=== PATIENT | male | born 1965 | race Caucasian/White ===

== ENCOUNTER 2016-04-03 07:54 | Inpatient (IN) | payer OTHER, MEDICARE, MEDICAID ==
[~2016-04-03] VITALS: Ht 175.3 cm; Wt 122.0 kg
[~2016-04-03 07:54] MED LIST: CLOP75TA27 PO; DIL1I IV; LISI20TA PO; METO-429 PO; PANT40SU PO; SIMV40TA2 PO; ZOLP5TAB PO
[2016-04-03] MEDS ORDERED: HYDROmorphONE 1 MG/ML SYG IV STA (08:35)
[2016-04-03] MEDS ORDERED: ONDANSETRON 4 MG INJ IV STA (08:35)
[2016-04-03] MEDS ORDERED: SOD CHLORIDE 0.9% 1,000 ML IV STA (08:35)
[2016-04-03] MEDS ORDERED: DIPHENHYDRAMINE 50 MG INJ IV ONE ×2 (09:00→14:30)
[2016-04-03 09:16] LABS: AADO2 Arterial 38.1 mmHg (7.0-24.0); Arterial Base Excess 0.9 mmol/L (-3.0-3); Arterial COHb 3.4 % (0.0-3.0); Arterial Fraction of Oxyhgb 92.7 % (93.0-99.0); Arterial HCO3 22.8 mmol/L (22.0-26.0); Arterial MetHb 0.1 % (0.0-1.5); Arterial Total Hemglobin 13.9 g/dl (12.0-18.0); MODE ROOM AIR
--- NOTE | 2016-04-03 09:37 | RADRPT ---
PROCEDURE: CT Abdomen and Pelvis without contrast. CLINICAL INDICATION: Abdominal pain TECHNIQUE: CT of the abdomen and pelvis was performed on a multi-detector scanner without IV contr ast. Coronal and sagittal images were reformatted from the axial data set. One or more of the foll owing dose reduction techniques were used: automated exposure control, adjustment of the mA and/or kV according to patient size, use of iterative reconstruction technique. CTDI = 23.46 mGy. DLP = 16 16.99 mGy-cm. COMPARISON: None. FINDINGS: CT abdomen: The lung bases are clear. The heart size is normal, without pericardial effusion. Coronary arteria l calcifications are noted. The liver is enlarged (20 cm) and fatty infiltrated, without evidence o f focal mass. Gallbladder is surgically absent. Biliary tree, pancreas, spleen, adrenal glands and kidneys are unremarkable. No urolithiasis or obstructive uropathy is identified. The stomach is gr ossly unremarkable. The aorta is of normal caliber. Aortic vascular calcifications are present. There is no retroperit valdes lymphadenopathy. The yao hepatis region is clear. CT pelvis: No bowel obstruction, free intraperitoneal air or abscess is identified. The patient is status post appendectomy. No diverticulosis, diverticulitis or colitis is identified. Urinary bladder is alfonso sly unremarkable. No pelvic mass, free fluid or lymphadenopathy is identified. The surrounding osseous structures are remarkable for degenerative spondylosis of the spine. No ost eolytic or osteoblastic lesion is detected. IMPRESSION: 1. Hepatic steatosis and hepatomegaly are noted. 2. The patient is status post cholecystectomy and appendectomy. 3. Coronary arterial and aortoiliac atherosclerotic calcifications are present. 4. No mass, lymphadenopathy, or focal acute inflammatory process is identified. RPTAT: HH .Robert Fleming MD, MD Date Time Electronically viewed and signed by .Robert Fleming MD, MD on 04/03/2016 09:37 .R/
[2016-04-03 09:43] LABS: ADD UMIC YES; URINE BILIRUBIN (Dip) NEGATIVE (NEGATIVE); URINE BLOOD (Dip) 1+ (NEGATIVE); URINE COLOR YELLOW (YELLOW); URINE GLUCOSE (Dip) NEGATIVE (NEGATIVE); URINE KETONES (Dip) 15 (NEGATIVE); URINE LEUKOCYTE ESTERASE (Dip) NEGATIVE (NEGATIVE); URINE NITRITE (Dip) NEGATIVE (NEGATIVE); URINE TOTAL PROTEIN (Dip) 1+ (NEGATIVE); URINE UROBILINOGEN (Dip) 0.2 E.U./dL (0.1-1.0)
--- NOTE | 2016-04-03 10:14 | RADRPT ---
PROCEDURE: XR Chest. CLINICAL INDICATION: Altered level of consciousness TECHNIQUE: Chest AP portable. COMPARISON: No comparison available. FINDINGS: The mediastinal structures are unremarkable. The heart is normal in size and configuration. The pu lmonary vascularity is normal. The lung andino are unremarkable. No consolidation is identified. The pleural spaces are unremarkable. The axial skeleton is unremarkable. IMPRESSION: No active intrathoracic disease. RPTAT: [facility] .Vinod Au MD, MD Date Time Electronically viewed and signed by .Vinod Au MD, MD on 04/03/2016 10:13 .B/
[2016-04-03 10:22] LABS: BACTERIA,URINE FEW; MUCUS,URINE MANY
[2016-04-03 10:32] LABS: BARBITURATES Negative (NEGATIVE)
[2016-04-03 11:00] LABS: BENZODIAZEPINES Negative (NEGATIVE); CANNABINOIDS Negative (NEGATIVE); COCAINE Positive (NEGATIVE); OPIATES Negative (NEGATIVE)
[2016-04-03 11:39] LABS: HEMOGLOBIN 14.3 g/dl (14.0-18.0); MEAN CORPUSCULAR HEMOGLOBIN 26.6 pg (29.0-33.0); MEAN CORPUSCULAR HGB CONC 33.4 g/dl (32.0-37.0); MEAN CORPUSCULAR VOLUME 79.7 fl (82.0-101.0); MEAN PLATELET VOLUME 9.2 fl (7.4-10.4); PLATELET COUNT 183 10^3/UL (140-440); RED BLOOD COUNT 5.39 10^6/ul (4.70-6.10); RED CELL DISTRIBUTION WIDTH 17.5 % (11.5-14.5); WHITE BLOOD COUNT 11.6 10^3/ul (4.8-10.8)
[2016-04-03 11:41] LABS: CONDITION 1; LH ANALYZER COMMENTS 1; SUSPECT 1; UNCORRECTED WBC 13.5 10^3/ul (4.8-10.8)
[2016-04-03 11:55] LABS: BASOPHIL # 0.1 10^3/ul (0.0-0.1); EOSINOPHILS # 0.1 10^3/ul (0.0-0.5); LYMPHOCYTES # 0.8 10^3/ul (0.8-2.9); MONOCYTE # 0.6 10^3/ul (0.3-0.9); NEUTROPHIL # 9.5 10^3/ul (1.6-7.5)
[2016-04-03 11:57] LABS: INR 0.97; PROTIME 12.9 Sec (12.2-14.2)
[2016-04-03 12:12] LABS: PARTIAL THROMBOPLASTIN TIME 31.8 Sec (25.0-35.0)
[2016-04-03 12:18] LABS: ALBUMIN 4.6 g/dl (3.3-4.9); CHLORIDE 107 mmol/L (97-110)
[2016-04-03 12:19] LABS: POTASSIUM 4.2 mmol/L (3.5-5.1); SODIUM 146 mmol/L (135-144)
[2016-04-03 12:21] LABS: BILIRUBIN,INDIRECT 0.6 mg/dl (0-1.1); BILIRUBIN,TOTAL 0.6 mg/dl (0.2-1.3); CREATININE 0.76 mg/dl (0.61-1.24)
[2016-04-03 12:22] LABS: ALANINE AMINOTRANSFERASE 29 IU/L (13-69); ALBUMIN/GLOBULIN RATIO 1.53; ALKALINE PHOSPHATASE 98 IU/L (42-121); ANION GAP 22 (8-16); ASPARTATE AMINO TRANSFERASE 44 IU/L (15-46); BLOOD UREA NITROGEN 17 mg/dl (7-20); CALCIUM 9.4 mg/dl (8.4-10.2); CARBON DIOXIDE 21 mmol/L (21-31); GLUCOSE 81 mg/dl (70-220); TOTAL PROTEIN 7.6 g/dl (6.1-8.1)
[2016-04-03 12:23] LABS: ACETAMINOPHEN < 10.0 ug/ml (10.0-30.0); ETHANOL < 10.0 mg/dl; SALICYLATE < 1.0 mg/dl (5.0-30.0)
--- NOTE | 2016-04-03 12:38 | ERD ---
ER Documentation Chief Complaint Date/Time DATE: 04/03/16 TIME: 12:29 Chief Complaint ATTEMPTED OD PLAVIX, YESTERDAY AND TRIED TO HANG HIMSELF LAST NIGHT, HPI Patient is a 50-year-old male who states that yesterday he took several pills of Plavix, metoprolol, and some aspirin in an attempt to kill himself. He said he throughout most of the pills and was not successful. After that he then tried to hang himself which was also not successful. He says the rope broke and he fell to the floor and knocked himself out. He is not sure how long he laid on the floor but when he woke up he woke up with bug bites all over himself. He then called the ambulance and they brought him here. His only complaints at this time are that he is having some side pain where he landed on the floor and that the bug bites or itching. He denies any head pain, chest pain, shortness of breath, neck pain, back pain, nausea, vomiting, loss of bowel or bladder, lacerations, bruising, abrasions, dysuria, or hematuria. He states he is still depressed and would like to . Remainder review of systems are negative. ROS All systems reviewed and are negative except as per history of present illness. Medications Home Meds Reported Medications Zolpidem Tartrate* (Ambien*) 5 Mg Tablet, 5 MG PO QHS Y for INSOMNIA, #30 TAB 02/12/16 Simvastatin* (Zocor*) 40 Mg Tablet, 40 MG PO QHS, #30 TAB 02/12/16 Pantoprazole Sodium (Protonix) 40 Mg Granpkt.dr, 40 MG PO AC BREAKFAST 02/12/16 Metoprolol Tartrate* (Lopressor*) 50 Mg Tab, 50 MG PO BID, #60 TAB 02/12/16 Lisinopril* (Prinivil*) 20 Mg Tablet, 20 MG PO DAILY, #30 TAB 02/12/16 Clopidogrel Bisulfate (Clopidogrel) 75 Mg Tablet, 75 MG PO DAILY, #30 TAB 02/12/16 Discontinued Reported Medications Hydromorphone Hcl* (Dilaudid* Inj) 1 Mg/Ml Soln, 0.5 MG IV Q4H Y for PAIN, AMP 02/12/16 Allergies Allergies: Coded Allergies: Iodine and Iodide Containing Produc (Verified Allergy, Severe, anaphylaxis , 02/12/16) acetaminophen (Verified Allergy, Severe, 02/12/16) Per pt., kidney failure morphine (Verified Allergy, Severe, hives, 02/12/16) PMhx/Soc History of Surgery: Yes (CHOLECYSTECTOMY,APPENDECTOMY) Anesthesia Reaction: No Hx Neurological Disorder: No Hx Respiratory Disorders: No Hx Cardiac Disorders: Yes (HTN) Hx Psychiatric Problems: No Hx Miscellaneous Medical Probl: No Hx Alcohol Use: Yes Hx Substance Use: Yes Hx Tobacco Use: Yes Smoking Status: Current every day smoker FmHx Family History: coronary disease, diabetes Physical Exam Vitals Vital Signs Date Time Temp Pulse Resp B/P Pulse Ox O2 Delivery O2 Flow Rate FiO2 04/03/16 14:05 98.6 74 19 135/78 100 Room Air 04/03/16 10:15 99.1 98 20 150/95 99 Room Air 2.0 04/03/16 08:00 98.0 101 20 172/96 98 Physical Exam Const: [] Well-developed well-nourished male lying on the bed tearful. Head: Atraumatic normocephalic Eyes: Normal Conjunctiva ENT: Normal External Ears, Nose and Mouth. Neck: Full range of motion..~ No meningismus. Resp: Clear to auscultation bilaterally Cardio: Regular rate and rhythm, no murmurs Abd: Soft, obese, mild tenderness to palpation in the right upper quadrant, no rebound, no guarding, no bruising, no masses, non distended. Normal bowel sounds Skin: No petechiae, patient has a scattered rash on his extremities and around his beltline. It is erythematous and papular consistent with bug bites. He states it itches. Back: No midline or flank tenderness Ext: No cyanosis, or edema Neur: Awake and alert oriented 3, GCS equals 15, cranial nerves II through XII are intact, moves all extremities equally, strength is 5 out of 5 in upper and lower extremities Psych: Depressed mood and affect, tearful Result Diagram: 04/03/16 1109 04/03/16 1109 Results 24 hrs Laboratory Tests Test 04/03/16 08:35 04/03/16 09:00 04/03/16 11:09 Arterial Blood HCO3 22.8mmol/L Arterial Blood Base Excess 0.9mmol/L Arterial Blood Oxygen Saturation 96.1mmHG Vincent Test N/A Arterial Blood Gas Puncture Site Right Brachial Arterial Blood Carboxyhemoglobin 3.4% Arterial Blood Date Drawn 04/03/2016 9:07:30 AM Arterial Blood Methemoglobin 0.1% Arterial Blood pCO2 (Temp correct) 28.7mmhg Arterial Blood pH (Temp corrected) 7.517 Arterial Blood pO2 (Temp corrected) 77.3mmHG Blood Gas A-a O2 Differential 38.1mmHg Blood Gas Modality ROOM AIR Blood Gas Notified Time 04/03/2016 9:16:14 AM Blood Gas Notified Whom RenéeTRIM AND BURR OPERATOR Blood Gas Specimen Source Blood arterial Blood Gas Temperature 37.0C FiO2 21.0% Oxyhemoglobin Percent 92.7% Total Hemoglobin 13.9g/dl Urine Amphetamines Screen Positive Urine Bacteria FEW Urine Barbiturates Negative Urine Benzodiazepines Screen Negative Urine Bilirubin NEGATIVE Urine Cannabinoids Negative Urine Clarity CLEAR Urine Cocaine Screen Positive Urine Color YELLOW Urine Epithelial Cells FEW Urine Glucose NEGATIVE% Urine Hemoglobin 1+ Urine Ketones 15 Urine Leukocyte Esterase NEGATIVE Urine Microscopic RBC 5-10/HPF Urine Microscopic WBC 5-10/HPF Urine Mucus MANY Urine Nitrite NEGATIVE Urine Opiates Screen Negative Urine Specific Avis 1.025 Urine Total Protein 1+ Urine Urobilinogen 0.2 E.U./dL Urine pH 6.0 Acetaminophen Level < 10.0ug/ml Activated Partial Thromboplast Time 31.8Sec Alanine Aminotransferase (ALT/SGPT) 29IU/L Albumin 4.6g/dl Albumin/Globulin Ratio 1.53 Alkaline Phosphatase 98IU/L Anion Gap 22 Aspartate Amino Transf (AST/SGOT) 44IU/L Band Neutrophils % 4.0% Basophils # 0.110^3/ul Basophils % 1.0% Blood Morphology Comment Blood Urea Nitrogen 17mg/dl Calcium Level 9.4mg/dl Carbon Dioxide Level 21mmol/L Chloride Level 107mmol/L Creatinine 0.76mg/dl Differential Comment MANUAL DIFF Direct Bilirubin 0.00mg/dl Eosinophils # 0.110^3/ul Eosinophils % 1.0% Ethyl Alcohol Level < 10.0mg/dl Globulin 3.00g/dl Glucose Level 81mg/dl Hematocrit 43.0% Hemoglobin 14.3g/dl INR International Normalized Ratio 0.97 Indirect Bilirubin 0.6mg/dl Lipase 68U/L Lymphocytes # 0.810^3/ul Lymphocytes % 7.0% Mean Corpuscular Hemoglobin 26.6pg Mean Corpuscular Hemoglobin Concent 33.4g/dl Mean Corpuscular Volume 79.7fl Mean Platelet Volume 9.2fl Monocytes # 0.610^3/ul Monocytes % 5.0% Neutrophils # 9.510^3/ul Neutrophils % 82.0% Nucleated Red Blood Cells # 10^3/ul Nucleated Red Blood Cells % /100WBC Platelet Count 38456^3/UL Potassium Level 4.2mmol/L Prothrombin Time 12.9Sec Prothrombin Time Ratio 1.0 Red Blood Count 5.3910^6/ul Red Cell Distribution Width 17.5% Salicylates Level < 1.0mg/dl Sodium Level 146mmol/L Total Bilirubin 0.6mg/dl Total Protein 7.6g/dl White Blood Count 11.610^3/ul Current Medications Medications (Trade) Dose Ordered Sig/Racquel Route PRN Reason Start Time Stop Time Status Last Admin Dose Admin Sodium Chloride (NS) 1,000 ml @ 1,000 mls/hr Q1H STAT IV 04/03/16 08:35 04/03/16 09:34 DC 04/03/16 10:17 Hydromorphone HCl (Dilaudid) 1 mg ONCE STAT IV 04/03/16 08:35 04/03/16 08:40 DC 04/03/16 10:17 Ondansetron HCl (Zofran Inj) 4 mg ONCE STAT IV 04/03/16 08:35 04/03/16 08:40 DC 04/03/16 10:17 Diphenhydramine HCl (Benadryl) 25 mg ONCE ONCE IV 04/03/16 09:00 04/03/16 09:01 DC 04/03/16 10:17 Diphenhydramine HCl (Benadryl) 25 mg ONCE ONCE IV 04/03/16 14:30 04/03/16 14:31 DC 04/03/16 14:37 Procedures/MDM EKG shows normal sinus rhythm at 80 bpm with no evidence of acute ischemia noted no old EKG available for comparison CT of the abdomen and pelvis did not reveal any acute intra-abdominal process per the radiologist read Chest x-ray did not reveal any acute cardiopulmonary process 1230: Patient feels much improved. His abdominal pain is improved on examination. He appears clinically stable for evaluation by [facility] and transfer to a psychiatric facility once accepted. Departure Diagnosis: Primary Impression: Suicide attempt by adequate means Encounter type: initial encounter Qualified Code: X83.8XXA - Suicide attempt by adequate means, initial encounter Additional Impressions: Abdominal pain Abdominal location: right upper quadrant Qualified Code: R10.11 - Right upper quadrant abdominal pain Bug bites Encounter type: initial encounter Qualified Code: W57.XXXA - Bug bites, initial encounter Depression Depression Type: major depressive disorder Major depression recurrence: recurrent Active/Remission status: currently active Major depression episode severity: severe Psychotic features: without psychotic features Qualified Code: F33.2 - Severe episode of recurrent major depressive disorder, without psychotic features ALCIDES MARTINEZ Apr 03, 2016 12:38
[2016-04-03] MEDS ORDERED: LORAZEPAM 2 MG INJ IV ONE (16:30)
[2016-04-03] MEDS ORDERED: IBUPROFEN 600 MG TAB PO ONE (16:30)
[2016-04-03] MEDS ORDERED: SODIUM CHLORIDE 0.9% 1L BAG IV* STA (17:13)
--- NOTE | 2016-04-03 17:17 | PSY ---
Date/Time of Note Date/Time of Note DATE: 04/03/16 TIME: 17:13 Psychiatric Subjective Eval Consent Pt consented to telemedicine: Yes Subjective Evaluation Patient location: emergency Chief Complaint: ATTEMPTED OD PLAVIX, YESTERDAY AND TRIED TO HANG HIMSELF LAST NIGHT, History of present illness reprot provided by Bam KUNZ Patient is a 50-year-old male who came to ED and states that yesterday he took several pills of Plavix, metoprolol, and some aspirin in an attempt to kill himself. He said he throughout most of the pills and was not successful. After that he then tried to hang himself which was also not successful. He says the rope broke and he fell to the floor and knocked himself out. He is not sure how long he laid on the floor but when he woke up he woke up with bug bites all over himself. He then called the ambulance and they brought him here. Pt states he is hopeless, helpless, depressed, sucidal, withdrawing from alcohol, last drink was yesterday then he tried to kill himself. Denies AH/VH, denies Hi, denies paranoia. States, he is still very depresed and suicidal.. Past psychiatric history denies Hospitalization: no Family History deneis Medical history Problems Medical Problems: (1) Abdominal pain Status: Acute (2) Bug bites Status: Acute (3) Depression Status: Acute (4) Suicide attempt by adequate means Status: Acute Allergies: Coded Allergies: Iodine and Iodide Containing Produc (Verified Allergy, Severe, anaphylaxis , 02/12/16) acetaminophen (Verified Allergy, Severe, 02/12/16) Per pt., kidney failure morphine (Verified Allergy, Severe, hives, 02/12/16) Substance Abuse Substance abuse history: Yes Prior substance abuse treatmen: Yes Social History Marital status: single Level of education: some college DPA/Conservatorship: No 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[employer], former EMT Psychiatric Objective Eval Physical Examination: Sleep: Insomnia Energy: Decreased Interest: Decreased Mental Status Examination: Appearance: Disheveled Eye Contact: Fair Psychomotor Activity: Agitated Behavior: Agitated Speech: Clear AFFECT: Depressed Mood: Irritable Though Process: Linear Thought Content: Normal Suicidal: Yes Homicidal: No On 72 hour hold: No Orientation: x4 Cognition: Alert Insight: Impared Judgement: Impared Laboratory Results Laboratory Tests Test 04/03/16 08:35 04/03/16 09:00 04/03/16 11:09 Arterial Blood HCO3 22.8mmol/L Arterial Blood Base Excess 0.9mmol/L Arterial Blood Oxygen Saturation 96.1mmHG Vincent Test N/A Arterial Blood Gas Puncture Site Right Brachial Arterial Blood Carboxyhemoglobin 3.4% Arterial Blood Date Drawn 04/03/2016 9:07:30 AM Arterial Blood Methemoglobin 0.1% Arterial Blood pCO2 (Temp correct) 28.7mmhg Arterial Blood pH (Temp corrected) 7.517 Arterial Blood pO2 (Temp corrected) 77.3mmHG Blood Gas A-a O2 Differential 38.1mmHg Blood Gas Modality ROOM AIR Blood Gas Notified Time 04/03/2016 9:16:14 AM Blood Gas Notified Whom RenéeGOVERNMENT AFFAIRS SPECIALIST Blood Gas Specimen Source Blood arterial Blood Gas Temperature 37.0C FiO2 21.0% Oxyhemoglobin Percent 92.7% Total Hemoglobin 13.9g/dl Urine Amphetamines Screen Positive Urine Bacteria FEW Urine Barbiturates Negative Urine Benzodiazepines Screen Negative Urine Bilirubin NEGATIVE Urine Cannabinoids Negative Urine Clarity CLEAR Urine Cocaine Screen Positive Urine Color YELLOW Urine Epithelial Cells FEW Urine Glucose NEGATIVE% Urine Hemoglobin 1+ Urine Ketones 15 Urine Leukocyte Esterase NEGATIVE Urine Microscopic RBC 5-10/HPF Urine Microscopic WBC 5-10/HPF Urine Mucus MANY Urine Nitrite NEGATIVE Urine Opiates Screen Negative Urine Specific [place] 1.025 Urine Total Protein 1+ Urine Urobilinogen 0.2 E.U./dL Urine pH 6.0 Acetaminophen Level < 10.0ug/ml Activated Partial Thromboplast Time 31.8Sec Alanine Aminotransferase (ALT/SGPT) 29IU/L Albumin 4.6g/dl Albumin/Globulin Ratio 1.53 Alkaline Phosphatase 98IU/L Anion Gap 22 Aspartate Amino Transf (AST/SGOT) 44IU/L Band Neutrophils % 4.0% Basophils # 0.110^3/ul Basophils % 1.0% Blood Morphology Comment Blood Urea Nitrogen 17mg/dl Calcium Level 9.4mg/dl Carbon Dioxide Level 21mmol/L Chloride Level 107mmol/L Creatinine 0.76mg/dl Differential Comment MANUAL DIFF Direct Bilirubin 0.00mg/dl Eosinophils # 0.110^3/ul Eosinophils % 1.0% Ethyl Alcohol Level < 10.0mg/dl Globulin 3.00g/dl Glucose Level 81mg/dl Hematocrit 43.0% Hemoglobin 14.3g/dl INR International Normalized Ratio 0.97 Indirect Bilirubin 0.6mg/dl Lipase 68U/L Lymphocytes # 0.810^3/ul Lymphocytes % 7.0% Mean Corpuscular Hemoglobin 26.6pg Mean Corpuscular Hemoglobin Concent 33.4g/dl Mean Corpuscular Volume 79.7fl Mean Platelet Volume 9.2fl Monocytes # 0.610^3/ul Monocytes % 5.0% Neutrophils # 9.510^3/ul Neutrophils % 82.0% Nucleated Red Blood Cells # 10^3/ul Nucleated Red Blood Cells % /100WBC Platelet Count 08515^3/UL Potassium Level 4.2mmol/L Prothrombin Time 12.9Sec Prothrombin Time Ratio 1.0 Red Blood Count 5.3910^6/ul Red Cell Distribution Width 17.5% Salicylates Level < 1.0mg/dl Sodium Level 146mmol/L Total Bilirubin 0.6mg/dl Total Protein 7.6g/dl White Blood Count 11.610^3/ul Assessment and Plan Assessment/Diagnosis [place] I: MAJOR DEPRESSIVE DISORDER, SEVERE, SINGLE EPISODE. POLYSUBSTANCE DEPENDENCE [place] II: DEFERED [place] III: PER RECORD [place] IV: SEVERE [place] V: GAF 25 Recommendation/Plan Medication Management pLEASE START [facility] Psychotherapy DEFER TO INPT Follow-up/Disposition 5150 FOR DTS; TRANSFER TO INPT PSYCH. 5150 Recommendation: ROYAL Hargrove MD Apr 03, 2016 17:17
[2016-04-03] MEDS ORDERED: CEFTRIAXONE 1 GM/50 ML (PMX) 50 ML IVPB ONE (17:30)
[2016-04-03] MEDS ORDERED: ALBUTEROL 0.083% (NEB) 2.5 MG/3 ML AMP HHN ONE (17:30)
[2016-04-03] MEDS ORDERED: AZITHROMYCIN 250 MG TAB PO ONE (17:30)
--- NOTE | 2016-04-03 17:31 | QN ---
Documentation Comment HPI: 50-year-old man signed out to me pending psychiatric evaluation and transfer to [facility]. He tried committing suicide last night by overdosing on multiple different medications including some antiplatelets, lisinopril, and alcohol. He tried hanging himself last night although the noose immediately broke and he fell to the floor unconscious, he states because of alcohol overdose, and he woke up 8 hours later with a full body rash and bed bugs all over him on the floor of a cheap motel room. Patient states he has been coughing for 3 days at this time is short of breath. He states about a year ago he was diagnosed with pneumonia and required antibiotic therapy. Last night he did vomit and suspects he aspirated some of it. Past medical history: Alcoholism, depression, asthma, hypertension Physical exam: GENERAL: Well-developed, depressed affect, febrile HEENT: Moist mucous membranes, pink conjunctiva, no cervical spine tenderness or step-off deformities, no goiter, no jaundice or icterus, extraocular movements intact without pain. No submandibular induration, and no pharyngeal erythema NEURO: Alert and oriented 3, cranial nerves II through XII intact bilaterally, pupils equal round reactive to light, no focal deficits or facial asymmetry, sensation intact distally Strength 5/5 in upper and lower extremities bilaterally CARDIAC: Tachycardic and, no murmurs rubs or gallops LUNGS: Scattered wheezes and bibasilar crackles, no stridor ABDOMEN: Soft nontender, no guarding, no rigidity, no rebound, no psoas sign no obturator sign. Normoactive bowel sounds SKIN: Warm and dry to touch, no abrasions, contusions, or hematomas, no lacerations, no ecchymosis, no target lesions, and without ulcers EXTREMITIES: No clubbing cyanosis or edema, calves are bilaterally symmetrical, no Homans sign, no popliteal cord sign. Distal pulses equal and bilateral PSYCH: Depressed affect Medical decision making: Temperature was about 101.5F here in the ED and patient was coughing and complaining of shortness of breath. I ordered albuterol 10 mg via nebulizer, about 3 L normal saline intravenously, ibuprofen 600 mg p.o., ceftriaxone 1 g IV and azithromycin 500 mg IV. 3 ordered CBC was unremarkable, electrolytes are normal, liver function tests normal, lactic acid was low. I do not suspect sepsis although this patient is not medically cleared and will be admitted to [facility] for continued medical and IV antibiotic management. For continued pain I administered morphine 4 mg IV and Benadryl 25 mg p.o. Diagnostic impression: #1) acute aspiration pneumonia 2) acute depression SETH GARCIA MD Apr 03, 2016 17:31
[2016-04-03] MEDS ORDERED: morphine 4 MG/ML VIAL IV STA (18:15)
[2016-04-03 18:37] LABS: BASOPHIL # 0.1 10^3/ul (0.0-0.1); BASOPHILS % 0.7 % (0.0-2.0); EOSINOPHILS # 0.2 10^3/ul (0.0-0.5); EOSINOPHILS % 2.3 % (0.0-7.0); HEMATOCRIT 40.2 % (42.0-52.0); LYMPHOCYTES # 0.6 10^3/ul (0.8-2.9); LYMPHOCYTES % 7.1 % (15.0-51.0); MEAN CORPUSCULAR HEMOGLOBIN 26.3 pg (29.0-33.0); MEAN CORPUSCULAR HGB CONC 32.4 g/dl (32.0-37.0); NEUTROPHIL # 6.2 10^3/ul (1.6-7.5); NEUTROPHILS % 76.9 % (39.0-77.0); PLATELET COUNT 169 10^3/UL (140-440); RED BLOOD COUNT 4.97 10^6/ul (4.70-6.10); RED CELL DISTRIBUTION WIDTH 17.4 % (11.5-14.5)
[2016-04-03 18:40] LABS: CONDITION 1; LH ANALYZER COMMENTS 1
[2016-04-03] MEDS ORDERED: DIPHENHYDRAMINE 50 MG CAP PO ONE (19:00)
[2016-04-03 19:41] LABS: ALBUMIN 4.2 g/dl (3.3-4.9)
[2016-04-03 19:42] LABS: POTASSIUM 3.5 mmol/L (3.5-5.1)
[2016-04-03 19:44] LABS: ALBUMIN/GLOBULIN RATIO 1.35; BILIRUBIN,INDIRECT 0.2 mg/dl (0-1.1); BILIRUBIN,TOTAL 0.2 mg/dl (0.2-1.3); CREATININE 0.77 mg/dl (0.61-1.24); TOTAL PROTEIN 7.3 g/dl (6.1-8.1)
[2016-04-03 19:57] LABS: TROPONIN-I 0.013 ng/ml (0.00-0.12)
[2016-04-03 21:20] LABS: INR 0.95; PROTIME 12.7 Sec (12.2-14.2)
[2016-04-03 21:21] LABS: PARTIAL THROMBOPLASTIN TIME 29.7 Sec (25.0-35.0)
[2016-04-03 21:22] VITALS: TEMP 99.4
[2016-04-03 21:55] VITALS: Ht 175.3 cm; Wt 122.0 kg
[2016-04-03 22:02] VITALS: BP_SYST 149; BP_SYST 49; BP_DIAS 83; PULSE 82; RESP 18
[2016-04-03] MEDS ORDERED: ONDANSETRON 4 MG INJ IV PRN (22:30)
[2016-04-03] MEDS ORDERED: CLINDAMYCIN 300 MG INJ IV SCH (22:30)
[2016-04-03 22:45] VITALS: BP 150/95; RESP 20
[2016-04-03] MEDS: ATORVASTATIN 20 MG TAB PO SCH (23:40)
[2016-04-03] MEDS: METOPROLOL 50 MG TAB PO SCH (23:40)
[2016-04-04] MEDS: CLINDAMYCIN 600 MG/D5W (PMX) 50 ML IVPB SCH ×4 (00:35→22:29)
[2016-04-04] MEDS: CEFEPIME 1GM/50 ML (PMX) 50 ML IVPB SCH ×4 (00:35→21:35)
[2016-04-04] MEDS ORDERED: KETOROLAC 30 MG INJ IV PRN (01:00)
[2016-04-04] MEDS ORDERED: traMADol 50 MG TAB PO PRN (01:30)
[2016-04-04] MEDS ORDERED: LORAZEPAM 2 MG INJ IV PRN (02:30)
[2016-04-04] MEDS: DIPHENHYDRAMINE 50 MG INJ IV PRN ×4 (02:32→20:14)
[2016-04-04] MEDS: morphine 4 MG/ML VIAL IV PRN ×4 (02:33→20:14)
[2016-04-04 08:00] VITALS: BP 145/92; RESP 20
[2016-04-04] MEDS: METOPROLOL 50 MG TAB PO SCH ×2 (08:09→21:35)
[2016-04-04] MEDS: CLOPIDOGREL 75 MG TAB PO SCH (08:10)
[2016-04-04] MEDS: LISINOPRIL 20 MG TAB PO SCH (08:10)
--- NOTE | 2016-04-04 09:21 | HP ---
Date/Time of Note Date/Time of Note DATE: 04/04/16 TIME: 09:06 Assessment/Plan Lines/Catheters IV Catheter Type (from [facility]): Saline Lock Urinary Cath still in place: No Assessment/Plan Assessment/Plan IMPRESSION 1. Suicide attempt 2. Sepsis likely 2/2 Possible Aspiration PNA 3. COPD 4. Morbid Obesity with BMI of ~ 40. PLAN - Cont 1:1 Sitter - Cont to monitor neuro status closely as well as for Organ failure from over dose - Will provide anti-anxiety meds - Transfer to in patient psych facility when medically cleared. In he meantime, cont current medical mgmt, including abx, bronchodilators and oxygen - f/u culture results HPI/ROS Admit Date/Time Admit Date/Time Apr 03, 2016 at 17:23 Hx of Present Illness Patient is a 50-year-old male who states that yesterday he took several pills of Plavix, metoprolol, and some aspirin in an attempt to kill himself. He said he throughout most of the pills and was not successful. After that he then tried to hang himself which was also not successful. He says the rope broke and he fell to the floor and knocked himself out. He is not sure how long he laid on the floor but when he woke up he woke up with bug bites all over himself. He then called the ambulance and they brought him here. His only complaints at this time are that he is having some side pain where he landed on the floor and that the bug bites or itching. He denies any head pain, chest pain, shortness of breath, neck pain, back pain, nausea, vomiting, loss of bowel or bladder, lacerations, bruising, abrasions, dysuria, or hematuria. He states he is still depressed and would like to . PMH/Family/Social Social History Smoking Status: Current every day smoker Exam/Review of Systems Vital Signs Vitals Vital Signs Date Time Temp Pulse Resp B/P Pulse Ox O2 Delivery O2 Flow Rate FiO2 04/03/16 22:45 99.1 98 20 150/95 99 04/03/16 22:02 Room Air 04/03/16 10:15 2.0 Intake and Output 04/03/16 04/03/16 04/04/16 15:00 23:00 07:00 Intake Total 1050 ml 820 ml Balance 1050 ml 820 ml Exam Constitutional: alert, oriented (obese), other Psych: depression, suicidal Head: atraumatic, normocephalic Eyes: PERRL Respiratory: diminished breath sounds, wheezing Cardiovascular: other (tachycardic with regular rhythm) Gastrointestinal: non-tender, other, soft Extremities: normal pulses Labs Result Diagram: 04/03/16 17404/03/16 1740 Medications Medications Current Medications Clopidogrel Bisulfate (plaVIX) 75 mg DAILY PO Last administered on 04/04/16 08: 10; Admin Dose 75 MG; Start 04/04/16 at 09:00 Lisinopril (Zestril) 20 mg DAILY PO Last administered on 04/04/16 08:10; Admin Dose 20 MG; Start 04/04/16 at 09:00 Metoprolol Tartrate (Lopressor) 50 mg BID PO Last administered on 04/04/16 08: 09; Admin Dose 50 MG; Start 04/03/16 at 22:30 Atorvastatin Calcium 20 mg 20 mg DAILY@21 PO ; Start 04/03/16 at 22:30 Cefepime HCl (Maxipime 1gm/50 ml (Pmx)) 50 ml @ 100 mls/hr Q12 IVPB Last administered on 04/04/16 02:53; Admin Dose 100 MLS/HR; Start 04/03/16 at 23:30 Ondansetron HCl 4 mg 4 mg Q6H PRN IV NAUSEA AND/OR VOMITING; Start 04/03/16 at 22:30 Clindamycin HCl/ Dextrose (Cleocin 600 Mg/ D5W (Pmx)) 50 ml @ 50 mls/hr Q8 IVPB Last administered on 04/04/16 05:57; Admin Dose 50 MLS/HR; Start 04/03/16 at 22 :30 Acetaminophen (Tylenol Tab) 650 mg Q6H PRN PO PAIN AND OR ELEVATED TEMP; Start 04/04/16 at 01:00 Ketorolac Tromethamine (Toradol) 30 mg Q6H PRN IV PAIN Last administered on 04/04 04:19; Admin Dose 30 MG; Start 04/04/16 at 01:00; Stop 04/07/16 at 00:59 Tramadol HCl (Ultram) 50 mg Q6H PRN PO PAIN; Start 04/04/16 at 01:30 Morphine Sulfate (morphine) 3 mg Q4H PRN IV BTP Last administered on 04/04/16 08:07; Admin Dose 3 MG; Start 04/04/16 at 01:30 Lorazepam (Ativan) 1 mg Q4H PRN IV ANXIETY Last administered on 04/04/16 02:32 ; Admin Dose 1 MG; Start 04/04/16 at 02:30 Diphenhydramine HCl (Benadryl) 25 mg Q6H PRN IV ITCHING Last administered on 08:04; Admin Dose 25 MG; Start 04/04/16 at 02:30 OLAF HERNANDEZ MD Apr 04, 2016 09:21
[2016-04-04] MEDS: PANTOPRAZOLE (EC) 40 MG TAB PO SCH (09:41)
[2016-04-04] MEDS ORDERED: ALBUTEROL/IPRATROPIUM (NEB) 3 ML AMP HHN PRN (14:00)
--- NOTE | 2016-04-04 14:00 | PN ---
Date/Time of Note Date/Time of Note DATE: 04/04/16 TIME: 13:47 Assessment/Plan VTE Prophylaxis VTE Prophylaxis Intervention: LMWH Lines/Catheters IV Catheter Type (from [facility]): Saline Lock Urinary Cath still in place: No Assessment/Plan Assessment/Plan 1. Pneumonia, on antibiotics 2. Sepsis likely 2/2 Possible Aspiration PNA 3. COPD, exacerbation, add neb, may need steroid 4. Suicide attempt 5. Rashes, unclear etiology, ID consult 7. Morbid Obesity with BMI of ~ 40. Exam/Review of Systems Vital Signs Vitals Vital Signs Date Time Temp Pulse Resp B/P Pulse Ox O2 Delivery O2 Flow Rate FiO2 04/04/16 08:00 99.7 84 20 145/92 96 04/03/16 22:02 Room Air 04/03/16 10:15 2.0 Intake and Output 04/03/16 04/03/16 04/04/16 15:00 23:00 07:00 Intake Total 1050 ml 820 ml Balance 1050 ml 820 ml Results Result Diagram: 04/03/16 1740 04/03/16 1740 Results 24 hrs Laboratory Tests Test 04/03/16 17:40 04/03/16 20:50 Alanine Aminotransferase (ALT/SGPT) 34 Albumin 4.2 Albumin/Globulin Ratio 1.35 Alkaline Phosphatase 92 Anion Gap 19 H Aspartate Amino Transf (AST/SGOT) 40 Basophils # 0.1 Basophils % 0.7 Blood Morphology Comment Blood Urea Nitrogen 16 Calcium Level 9.0 Carbon Dioxide Level 23 Chloride Level 104 Creatinine 0.77 Direct Bilirubin 0.00 Eosinophils # 0.2 Eosinophils % 2.3 Globulin 3.10 Glucose Level 122 # Hematocrit 40.2 L Hemoglobin 13.0 L Indirect Bilirubin 0.2 Lactic Acid Level 1.2 1.2 Lipase 104 Lymphocytes # 0.6 L Lymphocytes % 7.1 L Mean Corpuscular Hemoglobin 26.3 L Mean Corpuscular Hemoglobin Concent 32.4 Mean Corpuscular Volume 81.0 L Mean Platelet Volume 9.0 Monocytes # 1.0 H Monocytes % 13.0 H Neutrophils # 6.2 Neutrophils % 76.9 Nucleated Red Blood Cells # 0.0 Nucleated Red Blood Cells % 0.0 Platelet Count 169 Potassium Level 3.5 Red Blood Count 4.97 Red Cell Distribution Width 17.4 H Sodium Level 142 Total Bilirubin 0.2 Total Protein 7.3 Troponin I 0.013 White Blood Count 8.0 # Activated Partial Thromboplast Time 29.7 INR International Normalized Ratio 0.95 Prothrombin Time 12.7 Prothrombin Time Ratio 1.0 Medications Medications Current Medications Clopidogrel Bisulfate (plaVIX) 75 mg DAILY PO Last administered on 04/04/16 08: 10; Admin Dose 75 MG; Start 04/04/16 at 09:00 Lisinopril (Zestril) 20 mg DAILY PO Last administered on 04/04/16 08:10; Admin Dose 20 MG; Start 04/04/16 at 09:00 Metoprolol Tartrate (Lopressor) 50 mg BID PO Last administered on 04/04/16 08: 09; Admin Dose 50 MG; Start 04/03/16 at 22:30 Atorvastatin Calcium 20 mg 20 mg DAILY@21 PO ; Start 04/03/16 at 22:30 Cefepime HCl (Maxipime 1gm/50 ml (Pmx)) 50 ml @ 100 mls/hr Q12 IVPB Last administered on 04/04/16 09:42; Admin Dose 100 MLS/HR; Start 04/03/16 at 23:30 Ondansetron HCl 4 mg 4 mg Q6H PRN IV NAUSEA AND/OR VOMITING; Start 04/03/16 at 22:30 Clindamycin HCl/ Dextrose (Cleocin 600 Mg/ D5W (Pmx)) 50 ml @ 50 mls/hr Q8 IVPB Last administered on 04/04/16 05:57; Admin Dose 50 MLS/HR; Start 04/03/16 at 22 :30 Acetaminophen (Tylenol Tab) 650 mg Q6H PRN PO PAIN AND OR ELEVATED TEMP; Start 04/04/16 at 01:00 Ketorolac Tromethamine (Toradol) 30 mg Q6H PRN IV PAIN Last administered on 04/04 04:19; Admin Dose 30 MG; Start 04/04/16 at 01:00; Stop 04/07/16 at 00:59 Tramadol HCl (Ultram) 50 mg Q6H PRN PO PAIN; Start 04/04/16 at 01:30 Morphine Sulfate (morphine) 3 mg Q4H PRN IV BTP Last administered on 04/04/16 08:07; Admin Dose 3 MG; Start 04/04/16 at 01:30 Lorazepam (Ativan) 1 mg Q4H PRN IV ANXIETY Last administered on 04/04/16 02:32 ; Admin Dose 1 MG; Start 04/04/16 at 02:30 Diphenhydramine HCl (Benadryl) 25 mg Q6H PRN IV ITCHING Last administered on 08:04; Admin Dose 25 MG; Start 04/04/16 at 02:30 MAUREEN ROBLES MD Apr 04, 2016 13:57
[2016-04-04] MEDS: ACETAMINOPHEN 325 MG TAB PO PRN (14:30)
[2016-04-04] MEDS: ENOXAPARIN 40 MG/0.4 ML SYG SC SCH (14:34)
--- NOTE | 2016-04-04 16:40 | CONS ---
DATE OF ADMISSION: 04/03/2016 DATE OF CONSULTATION: 04/04/2016 04/04/2016 TYPE OF CONSULTATION: Infectious Disease. REASON FOR CONSULTATION: Antibiotic management. HISTORY OF PRESENT ILLNESS: Johnson Giang is a 50-year-old white male who states that he took sever al pills of Plavix, metoprolol, and an aspirin in an attempt to kill himself. He tried to hang hims elf, was unsuccessful. He comes in now with suicidal ideation. There is also possibility of sepsis secondary to aspiration pneumonia. His problems include: 1. COPD. 2. Morbid obesity with BMI of 40. On admission, his white count was 8.0, H and H of 13 and 40.2, platelet count 169,000. BUN and crea tinine 16/0.77, glucose 122. PHYSICAL EXAMINATION: GENERAL: On physical examination, the patient is awake. He is morbidly obese. SKIN: Without generalized rash. HEENT: Within normal limits. NECK: Supple. LYMPH NODES: None palpable. CHEST: Decreased breath sounds at the bases. HEART: Without murmur or gallop. ABDOMEN: Soft, obese, nontender, without organosplenomegaly or masses. EXTREMITIES: Without cyanosis, clubbing, or edema. RECTAL AND GENITAL: Deferred. NEUROLOGIC: No focal neurological abnormality. The patient also has a rash, etiology of which is u nclear. The rash may be secondary to bug bites or scratching. PAST SURGICAL HISTORY: Status post cholecystectomy, status post appendectomy. ALLERGIES: 1. IODINE 2. ACETAMINOPHEN 3. MORPHINE. BACK: He has a scattered rash on his extremities and around his belt line, erythematous, papular, c onsistent with bug bites. IMPRESSION AND PLAN: At this point, he is on clindamycin and cefepime. His urine culture so far is negative. We will continue to observe. I will dictate my findings to the hospitalist. Dictated By: JONAH BRUNSON MD, JD/BEN Conf#: [id number] DID#: [id number]
[2016-04-04 19:00] VITALS: BP 152/95; RESP 20
[2016-04-04 19:15] VITALS: BP 152/95; RESP 20
[2016-04-04 21:00] VITALS: BP 152/95; RESP 20
[2016-04-04] MEDS: ATORVASTATIN 20 MG TAB PO SCH (21:34)
[2016-04-05] MEDS: morphine 4 MG/ML VIAL IV PRN ×6 (00:14→21:22)
[2016-04-05] MEDS: DIPHENHYDRAMINE 50 MG INJ IV PRN ×4 (02:12→21:24)
[2016-04-05] MEDS: CLINDAMYCIN 600 MG/D5W (PMX) 50 ML IVPB SCH ×2 (06:35→13:20)
[2016-04-05 07:45] VITALS: BP 139/85; RESP 18
[2016-04-05] MEDS: LISINOPRIL 20 MG TAB PO SCH (08:39)
[2016-04-05] MEDS: PANTOPRAZOLE (EC) 40 MG TAB PO SCH (08:39)
[2016-04-05] MEDS: CLOPIDOGREL 75 MG TAB PO SCH (08:40)
[2016-04-05] MEDS: METOPROLOL 50 MG TAB PO SCH ×2 (08:40→20:38)
[2016-04-05] MEDS: CEFEPIME 1GM/50 ML (PMX) 50 ML IVPB SCH (08:40)
[2016-04-05] MEDS: ENOXAPARIN 40 MG/0.4 ML SYG SC SCH (09:00)
--- NOTE | 2016-04-05 11:57 | PN ---
Date/Time of Note Date/Time of Note DATE: 04/05/16 TIME: 11:54 Assessment/Plan VTE Prophylaxis VTE Prophylaxis Intervention: other Lines/Catheters IV C[facility]ter Type (from [facility]): Saline Lock Urinary Cath still in place: No Assessment/Plan Problems: (1) Dermatitis Status: Acute Comment: I suspect this may actually represent scabies. He will be treated as such with a single dose of permethrin to resolve this (2) COPD with exacerbation Status: Acute Comment: He has fairly well-documented COPD. This is not pneumonia please see the chest x-ray reports. We will treat him for the exacerbation with antibiotics as well as put him on COPD medications and stabilize him. My expectation he will be stabilized to the point that he can go to a psychiatric facility in 48 hours (3) Depression Status: Acute Comment: We are trying to work with him here. He has a sitter and is in a safe environment. 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, without psychotic features (4) Suicide attempt by adequate means Status: Acute Comment: As per psychiatry Qualifiers: Encounter type: initial encounter Qualified Code: X83.8XXA - Suicide attempt by adequate means, initial encounter Subjective 24 Hr Interval Summary Free Text/Dictation Patient lying in bed conversant Constitutional: no complaints (Denies fever chills or sweats) Respiratory: cough, wheezing Cardiovascular: no complaints Gastrointestinal: no complaints Genitourinary: no complaints Skin: pruritis (Intensely pruritic rash at the belt line in the lower extremities and upper extremities) Neurologic: no complaints Psychological: depression, suicidal Exam/Review of Systems Vital Signs Vitals Vital Signs Date Time Temp Pulse Resp B/P Pulse Ox O2 Delivery O2 Flow Rate FiO2 04/05/16 07:45 99.2 68 18 139/85 94 04/05/16 00:16 21 04/03/16 22:02 Room Air 04/03/16 10:15 2.0 Intake and Output 04/04/16 04/04/16 04/05/16 15:00 23:00 07:00 Intake Total 1260 ml 50 ml Balance 1260 ml 50 ml Exam Constitutional: alert, oriented Neck: non-tender, supple Respiratory: diminished breath sounds, other (Increased AP diameter), wheezing Cardiovascular: nl pulses, regular rate and rhythm Gastrointestinal: nl liver, spleen, non-tender, soft Skin: other (Excoriated rash.) Results Result Diagram: 04/03/160 04/03/16 1740 Medications Medications Current Medications Clopidogrel Bisulfate (plaVIX) 75 mg DAILY PO Last administered on 04/05/16 08: 40; Admin Dose 75 MG; Start 04/04/16 at 09:00 Lisinopril (Zestril) 20 mg DAILY PO Last administered on 04/05/16 08:39; Admin Dose 20 MG; Start 04/04/16 at 09:00 Metoprolol Tartrate (Lopressor) 50 mg BID PO Last administered on 04/05/16 08: 40; Admin Dose 50 MG; Start 04/03/16 at 22:30 Atorvastatin Calcium 20 mg 20 mg DAILY@21 PO Last administered on 04/04/16 21: 34; Admin Dose 20 MG; Start 04/03/16 at 22:30 Cefepime HCl (Maxipime 1gm/50 ml (Pmx)) 50 ml @ 100 mls/hr Q12 IVPB Last administered on 04/05/16 08:40; Admin Dose 100 MLS/HR; Start 04/03/16 at 23:30 Ondansetron HCl 4 mg 4 mg Q6H PRN IV NAUSEA AND/OR VOMITING; Start 04/03/16 at 22:30 Clindamycin HCl/ Dextrose (Cleocin 600 Mg/ D5W (Pmx)) 50 ml @ 50 mls/hr Q8 IVPB Last administered on 04/05/16 06:35; Admin Dose 50 MLS/HR; Start 04/03/16 at 22 :30 Acetaminophen (Tylenol Tab) 650 mg Q6H PRN PO PAIN AND OR ELEVATED TEMP Last administered on 04/04/16 14:30; Admin Dose 650 MG; Start 04/04/16 at 01:00 Ketorolac Tromethamine (Toradol) 30 mg Q6H PRN IV PAIN Last administered on 04/04 04:19; Admin Dose 30 MG; Start 04/04/16 at 01:00; Stop 04/07/16 at 00:59 Tramadol HCl (Ultram) 50 mg Q6H PRN PO PAIN; Start 04/04/16 at 01:30 Morphine Sulfate (morphine) 3 mg Q4H PRN IV BTP Last administered on 04/05/16 08:40; Admin Dose 3 MG; Start 04/04/16 at 01:30 Lorazepam (Ativan) 1 mg Q4H PRN IV ANXIETY Last administered on 04/04/16 02:32 ; Admin Dose 1 MG; Start 04/04/16 at 02:30 Diphenhydramine HCl (Benadryl) 25 mg Q6H PRN IV ITCHING Last administered on 08:40; Admin Dose 25 MG; Start 04/04/16 at 02:30 Enoxaparin Sodium (Lovenox) 40 mg DAILY SC Last administered on 04/04/16 14:34 ; Admin Dose 40 MG; Start 04/04/16 at 14:00 SAMIRA MILLER MD Apr 05, 2016 11:57
[2016-04-05] MEDS: SALMETEROL/FLUTICASONE 250/50 INHA INH SCH ×2 (13:20→20:41)
[2016-04-05] MEDS: TIOTROPIUM 18 MCG CAPSULE INHA DEV INH SCH (13:21)
[2016-04-05 19:46] VITALS: BP 169/95; RESP 20
[2016-04-05] MEDS: ATORVASTATIN 20 MG TAB PO SCH (20:38)
[2016-04-05] MEDS: LORATADINE 10 MG TAB PO SCH (20:38)
[2016-04-05] MEDS: ACETAMINOPHEN 325 MG TAB PO PRN (20:50)
[2016-04-05] MEDS ORDERED: PERMETHRIN 5% 60 GM CR TOP SCH (21:00)
[2016-04-05] MEDS: NEOMYC/POLYMYX/BACIT/HC 15 GM OINT TOP SCH (21:41)
[2016-04-06] MEDS: morphine 4 MG/ML VIAL IV PRN ×5 (01:23→23:03)
[2016-04-06] MEDS: LEVOFLOXACIN 500 MG TAB PO SCH (05:22)
--- NOTE | 2016-04-06 05:23 | PN ---
DATE: 04/05/2016 INFECTIOUS DISEASE PROGRESS NOTE SUBJECTIVE: No acute changes overnight. The patient is awake, looks comfortable, denies pain or di scomfort. No fevers. No labs this morning. MICROBIOLOGY: Blood cultures have been negative. DIAGNOSTICS: Chest x-ray on admission revealed no active intrathoracic disease. A CT of the abdomen and pelvis showed no acute inflammatory process. ANTIMICROBIALS: The patient is on cefepime and clindamycin. He also received a dose of Elimite thi s morning. OBJECTIVE: GENERAL: This is an obese, well-developed, middle-aged man who is alert, in no distress. HEENT: Head atraumatic, normocephalic. Sclerae anicteric. Buccal mucosa pink. NECK: Supple, trachea midline. CHEST: Rise symmetrical. Breath sounds diminished to bases. HEART: S1, S2. ABDOMEN: Soft. Bowel tones present. EXTREMITIES: Without cyanosis. SKIN: With maculopapular rash, more on extremities. NEUROMUSCULAR: The patient is alert and ambulating. ASSESSMENT: 1. Skin rash consistent with bug bites or scratching, rule out scabies. The patient received Elimi te treatment. 2. Systemic inflammatory response syndrome present on admission, possible aspiration event. 3. History of chronic obstructive pulmonary disease. 4. Status post suicide attempt. 5. Morbid obesity. PLAN: The patient remains stable. We are going to add cortisone cream and give him oral antihistam roverto in the form of Sharifa or substitute. We will add cortisone topical cream to skin rash, change antibiotics to oral Levaquin. Follow chest x-ray. Await clinical improvement. Dictated By: ELSIE THOMAS [employer] SUPERVISOR for JONAH SAMS/BEN Conf#: [id number] DID#: [id number]
[2016-04-06] MEDS: DIPHENHYDRAMINE 50 MG INJ IV PRN ×3 (05:26→18:49)
[2016-04-06 07:30] VITALS: BP 144/85; RESP 16
[2016-04-06] MEDS: CLOPIDOGREL 75 MG TAB PO SCH (09:01)
[2016-04-06] MEDS: METOPROLOL 50 MG TAB PO SCH ×2 (09:01→21:00)
[2016-04-06] MEDS: PANTOPRAZOLE (EC) 40 MG TAB PO SCH (09:01)
[2016-04-06] MEDS: LORATADINE 10 MG TAB PO SCH (09:02)
[2016-04-06] MEDS: LISINOPRIL 20 MG TAB PO SCH (09:02)
[2016-04-06] MEDS: SALMETEROL/FLUTICASONE 250/50 INHA INH SCH ×2 (09:03→22:28)
[2016-04-06] MEDS: TIOTROPIUM 18 MCG CAPSULE INHA DEV INH SCH (09:03)
[2016-04-06] MEDS: NEOMYC/POLYMYX/BACIT/HC 15 GM OINT TOP SCH ×3 (09:04→21:00)
[2016-04-06] MEDS: ENOXAPARIN 40 MG/0.4 ML SYG SC SCH (09:06)
--- NOTE | 2016-04-06 11:13 | PN ---
Date/Time of Note Date/Time of Note DATE: 04/06/16 TIME: 11:11 Assessment/Plan VTE Prophylaxis VTE Prophylaxis Intervention: other Lines/Catheters IV [facility]ter Type (from [facility] Saline Lock Urinary Cath still in place: No Assessment/Plan Problems: (1) Obesity (BMI 30-39.9) Status: Chronic Comment: Counseled especially regarding the nonalcoholic fatty liver disease interaction (2) Nonalcoholic fatty liver disease Status: Chronic Comment: Noted and as above (3) Polydrug abuse Status: Chronic Comment: This gentleman will need placement. First for psychiatric purposes for his depression and suicide attempt and then secondarily for the rehabilitation from his drugs (4) COPD with exacerbation Status: Acute Comment: Significantly improved with routine treatment (5) Dermatitis Status: Acute Comment: Improving. He has been treated with Elimite and is therefore not a communicable disease risk (6) Suicide attempt by adequate means Status: Acute Comment: He will need to go to a psychiatric facility Qualifiers: Encounter type: initial encounter Qualified Code: X83.8XXA - Suicide attempt by adequate means, initial encounter (7) Depression Status: Acute Comment: Noted Qualifiers: Depression Type: major depressive disorder Major depression recurrence: recurrent Active/Remission status: currently active Major depression episode severity: severe Psychotic features: without psychotic features Qualified Code: 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 He reports his breathing has improved Constitutional: no complaints (Denies fevers chills or sweats) Respiratory: no complaints (Reports breathing is better) Cardiovascular: no complaints Skin: pruritis Exam/Review of Systems Vital Signs Vitals Vital Signs Date Time Temp Pulse Resp B/P Pulse Ox O2 Delivery O2 Flow Rate FiO2 04/06/16 07:30 99.4 68 16 144/85 98 04/05/16 00:16 21 04/03/16 22:02 Room Air 04/03/16 10:15 2.0 Intake and Output 04/05/16 04/05/16 04/06/16 15:00 23:00 07:00 Intake Total 1930 ml 1800 ml Output Total 250 ml Balance 1930 ml 1550 ml Exam Constitutional: alert, oriented Neck: non-tender, supple Respiratory: wheezing (Wheezing is significantly improved) Cardiovascular: nl pulses, regular rate and rhythm Gastrointestinal: nl liver, spleen, non-tender, soft Skin: other (Skin is largely the same however it appears to be slightly less erythematous) Results Result Diagram: 04/03/16 1740 04/03/16 1740 Medications Medications Current Medications Clopidogrel Bisulfate (plaVIX) 75 mg DAILY PO Last administered on 04/06/16 09: 01; Admin Dose 75 MG; Start 04/04/16 at 09:00 Metoprolol Tartrate (Lopressor) 50 mg BID PO Last administered on 04/06/16 09: 01; Admin Dose 50 MG; Start 04/03/16 at 22:30 Atorvastatin Calcium (Lipitor) 20 mg DAILY@21 PO Last administered on 04/05/16 20:38; Admin Dose 20 MG; Start 04/03/16 at 22:30 Ondansetron HCl (Zofran Inj) 4 mg Q6H PRN IV NAUSEA AND/OR VOMITING; Start 04/03 at 22:30 Acetaminophen (Tylenol Tab) 650 mg Q6H PRN PO PAIN AND OR ELEVATED TEMP Last administered on 04/05/16 20:50; Admin Dose 650 MG; Start 04/04/16 at 01:00 Ketorolac Tromethamine (Toradol) 30 mg Q6H PRN IV PAIN Last administered on 04/04 04:19; Admin Dose 30 MG; Start 04/04/16 at 01:00; Stop 04/07/16 at 00:59 Tramadol HCl (Ultram) 50 mg Q6H PRN PO PAIN; Start 04/04/16 at 01:30 Morphine Sulfate (morphine) 3 mg Q4H PRN IV BTP Last administered on 04/06/16 05:23; Admin Dose 3 MG; Start 04/04/16 at 01:30 Lorazepam (Ativan) 1 mg Q4H PRN IV ANXIETY Last administered on 04/04/16 02:32 ; Admin Dose 1 MG; Start 04/04/16 at 02:30 Diphenhydramine HCl (Benadryl) 25 mg Q6H PRN IV ITCHING Last administered on 05:26; Admin Dose 25 MG; Start 04/04/16 at 02:30 Enoxaparin Sodium (Lovenox) 40 mg DAILY SC Last administered on 04/06/16 09:06 ; Admin Dose 40 MG; Start 04/04/16 at 14:00 Lisinopril (Zestril) 40 mg DAILY PO Last administered on 04/06/16 09:02; Admin Dose 40 MG; Start 04/06/16 at 09:00 Salmeterol Xinafoate/ Fluticasone (Advair 250/50 Diskus) 1 inh BID INH Last administered on 04/06/16 09:03; Admin Dose 1 INH; Start 04/05/16 at 12:00 Tiotropium [place] (Spiriva) 1 inh DAILY INH Last administered on 04/06/16 09: 03; Admin Dose 1 INH; Start 04/05/16 at 12:00 Levofloxacin (Levaquin) 500 mg DAILY@06 PO Last administered on 04/06/16 05:22 ; Admin Dose 500 MG; Start 04/06/16 at 06:00 Neomycin/ Polymyxin/Bacitr/ Hydrocort (Cortisporin Topical Oint) 1 applic TID TOP Last administered on 04/06/16 09:04; Admin Dose 1 APPLIC; Start 04/05/16 at 21:00 Loratadine (Claritin) 10 mg DAILY PO Last administered on 04/06/16 09:02; Admin Dose 10 MG; Start 04/05/16 at 19:30 SAMIRA MILLER MD Apr 06, 2016 11:13
[2016-04-06] MEDS ORDERED: HYDROCORTISONE 100 MG INJ IV ONE (11:30)
[2016-04-06] MEDS: SERTRALINE 50 MG TAB PO SCH (12:19)
--- NOTE | 2016-04-06 18:35 | CONS ---
Date/Time of Note Date/Time of Note DATE: 04/06/16 TIME: 18:32 Assessment/Plan Assessment/Plan Chief Complaint/Hosp Course SUBJECTIVE: No acute changes overnight. The patient is awake, c/o itching, looks comfortable, denies pain or discomfort. No fevers. No labs this morning. MICROBIOLOGY: Blood cultures have been negative. DIAGNOSTICS: Chest x-ray on admission revealed no active intrathoracic disease. A CT of the abdomen and pelvis showed no acute inflammatory process. ANTIMICROBIALS: The patient is on Levaquin, s/p Elimite OBJECTIVE: GENERAL: This is an obese, well-developed, middle-aged man who is alert, in no distress. HEENT: Head atraumatic, normocephalic. Sclerae anicteric. Buccal mucosa pink. NECK: Supple, trachea midline. CHEST: Rise symmetrical. Breath sounds diminished to bases. HEART: S1, S2. ABDOMEN: Soft. Bowel tones present. EXTREMITIES: Without cyanosis. SKIN: With maculopapular rash, more on extremities. NEUROMUSCULAR: The patient is alert and ambulating. ASSESSMENT: 1. Skin rash ==> poss bug bites, poss folliculitis ==> s/p Elimite treatment. 2. Systemic inflammatory response syndrome present on admission, possible aspiration event. 3. History of chronic obstructive pulmonary disease. 4. Status post suicide attempt. 5. Morbid obesity. PLAN: The patient remains stable. We are going to add Bactrim, continue cortisone cream, oral antihistamines. Await clinical improvement. DW staff Problems: Consultation Date/Type/Reason Admit Date/Time Apr 03, 2016 at 17:23 Initial Consult Date Type of Consultation: ID Exam/Review of Systems Vital Signs Vitals Vital Signs Date Time Temp Pulse Resp B/P Pulse Ox O2 Delivery O2 Flow Rate FiO2 04/06/16 07:30 99.4 68 16 144/85 98 04/05/16 00:16 21 04/03/16 22:02 Room Air 04/03/16 10:15 2.0 Intake and Output 04/05/16 04/05/16 04/06/16 15:00 23:00 07:00 Intake Total 1930 ml 1800 ml Output Total 250 ml Balance 1930 ml 1550 ml Results Result Diagram: 04/03/16 1740 04/03/16 1740 Medications Medications Current Medications Clopidogrel Bisulfate (plaVIX) 75 mg DAILY PO Last administered on 04/06/16 09: 01; Admin Dose 75 MG; Start 04/04/16 at 09:00 Metoprolol Tartrate (Lopressor) 50 mg BID PO Last administered on 04/06/16 09: 01; Admin Dose 50 MG; Start 04/03/16 at 22:30 Atorvastatin Calcium (Lipitor) 20 mg DAILY@21 PO Last administered on 04/05/16 20:38; Admin Dose 20 MG; Start 04/03/16 at 22:30 Ondansetron HCl (Zofran Inj) 4 mg Q6H PRN IV NAUSEA AND/OR VOMITING; Start 04/03 at 22:30 Acetaminophen (Tylenol Tab) 650 mg Q6H PRN PO PAIN AND OR ELEVATED TEMP Last administered on 04/05/16 20:50; Admin Dose 650 MG; Start 04/04/16 at 01:00 Ketorolac Tromethamine (Toradol) 30 mg Q6H PRN IV PAIN Last administered on 04/04 04:19; Admin Dose 30 MG; Start 04/04/16 at 01:00; Stop 04/07/16 at 00:59 Tramadol HCl (Ultram) 50 mg Q6H PRN PO PAIN; Start 04/04/16 at 01:30 Morphine Sulfate (morphine) 3 mg Q4H PRN IV BTP Last administered on 04/06/16 15:16; Admin Dose 3 MG; Start 04/04/16 at 01:30 Lorazepam (Ativan) 1 mg Q4H PRN IV ANXIETY Last administered on 04/04/16 02:32 ; Admin Dose 1 MG; Start 04/04/16 at 02:30 Diphenhydramine HCl (Benadryl) 25 mg Q6H PRN IV ITCHING Last administered on 11:25; Admin Dose 25 MG; Start 04/04/16 at 02:30 Enoxaparin Sodium (Lovenox) 40 mg DAILY SC Last administered on 04/06/16 09:06 ; Admin Dose 40 MG; Start 04/04/16 at 14:00 Lisinopril (Zestril) 40 mg DAILY PO Last administered on 04/06/16 09:02; Admin Dose 40 MG; Start 04/06/16 at 09:00 Salmeterol Xinafoate/ Fluticasone (Advair 250/50 Diskus) 1 inh BID INH Last administered on 04/06/16 09:03; Admin Dose 1 INH; Start 04/05/16 at 12:00 Tiotropium [place] (Spiriva) 1 inh DAILY INH Last administered on 04/06/16 09: 03; Admin Dose 1 INH; Start 04/05/16 at 12:00 Levofloxacin (Levaquin) 500 mg DAILY@06 PO Last administered on 04/06/16 05:22 ; Admin Dose 500 MG; Start 04/06/16 at 06:00; Stop 04/09/16 at 05:59 Neomycin/ Polymyxin/Bacitr/ Hydrocort (Cortisporin Topical Oint) 1 applic TID TOP Last administered on 04/06/16 13:55; Admin Dose 1 APPLIC; Start 04/05/16 at 21:00 Loratadine (Claritin) 10 mg DAILY PO Last administered on 04/06/16 09:02; Admin Dose 10 MG; Start 04/05/16 at 19:30 Sertraline HCl (Zoloft) 50 mg DAILY PO Last administered on 04/06/16 12:19; Admin Dose 50 MG; Start 04/06/16 at 11:30 ELSIE THOMAS NP Apr 06, 2016 18:35
[2016-04-06 19:48] VITALS: BP 153/88; RESP 16
[2016-04-06] MEDS: ATORVASTATIN 20 MG TAB PO SCH (22:28)
[2016-04-07] MEDS: morphine 4 MG/ML VIAL IV PRN ×2 (03:06→09:04)
[2016-04-07] MEDS: DIPHENHYDRAMINE 50 MG INJ IV PRN ×3 (03:08→20:52)
[2016-04-07] MEDS: LEVOFLOXACIN 500 MG TAB PO SCH (06:13)
[2016-04-07 07:45] VITALS: BP 135/76; RESP 18
[2016-04-07] MEDS: SERTRALINE 50 MG TAB PO SCH (08:59)
[2016-04-07] MEDS: ENOXAPARIN 40 MG/0.4 ML SYG SC SCH (08:59)
[2016-04-07] MEDS: LISINOPRIL 20 MG TAB PO SCH (08:59)
[2016-04-07] MEDS: LORATADINE 10 MG TAB PO SCH (08:59)
[2016-04-07] MEDS: NEOMYC/POLYMYX/BACIT/HC 15 GM OINT TOP SCH ×3 (08:59→20:45)
[2016-04-07] MEDS: CLOPIDOGREL 75 MG TAB PO SCH (08:59)
[2016-04-07] MEDS: METOPROLOL 50 MG TAB PO SCH ×2 (09:00→20:44)
[2016-04-07] MEDS: SALMETEROL/FLUTICASONE 250/50 INHA INH SCH ×2 (09:00→20:44)
[2016-04-07] MEDS: TIOTROPIUM 18 MCG CAPSULE INHA DEV INH SCH (09:01)
[2016-04-07] MEDS: PANTOPRAZOLE (EC) 40 MG TAB PO SCH (09:02)
[2016-04-07] MEDS ORDERED: LEVO500T72 PO (12:46)
--- NOTE | 2016-04-07 12:56 | DES ---
Date/Time of Note Date/Time of Note this is a wrong note MAUREEN ROBLES MD Apr 07, 2016 12:54
--- NOTE | 2016-04-07 12:58 | DS ---
Date/Time of Note Date/Time of Note DATE: 04/07/16 TIME: 12:56 Discharge Summary Admission/Discharge Info Admit Date/Time Apr 03, 2016 at 17:23 Discharge Date/Time Final Diagnosis 1. Acute bronchitis/Pneumonia, stable, on levaquin 2. Sepsis, resolved 3. COPD, exacerbation, improved 4. Suicide attempt, transfer to psychiatry facility 5. Rashes, improving 7. Morbid Obesity with BMI of ~ 40. Patient Condition: Stable Hospital Course Patient is a 50-year-old male who states that yesterday he took several pills of Plavix, metoprolol, and some aspirin in an attempt to kill himself. He said he throughout most of the pills and was not successful. After that he then tried to hang himself which was also not successful. He says the rope broke and he fell to the floor and knocked himself out. He is not sure how long he laid on the floor but when he woke up he woke up with bug bites all over himself. He then called the ambulance and they brought him here. His only complaints at this time are that he is having some side pain where he landed on the floor and that the bug bites or itching. Patient had cough with shortness of breath that started before the suicidal event. CXR and CT scan no pulmonary infiltrates. Patient is treated as acute bronchitis/pneumonia and COPD exacerbation, symptoms improved. He will continue 6 more days of oral levaquin on discharge. Patient developed rashes all over the body especially on waist, bvugbite versus folliculitis is considered. Patient got Elimite treatment. It is improving. For depression and suicidal ideation/attempt, Patient is transferred to a psych facility for further treatment. Home Meds Active Scripts Levofloxacin* (Levaquin*) 500 Mg Tablet, 500 MG PO DAILY@06 for 6 Days, TAB Prov:MAUREEN ROBLES MD 04/07/16 Reported Medications Zolpidem Tartrate* (Ambien*) 5 Mg Tablet, 5 MG PO QHS Y for INSOMNIA, #30 TAB 02/12/16 Simvastatin* (Zocor*) 40 Mg Tablet, 40 MG PO QHS, #30 TAB 02/12/16 Pantoprazole Sodium (Protonix) 40 Mg Granpkt.dr, 40 MG PO AC BREAKFAST 02/12/16 Metoprolol Tartrate* (Lopressor*) 50 Mg Tab, 50 MG PO BID, #60 TAB 02/12/16 Lisinopril* (Prinivil*) 20 Mg Tablet, 20 MG PO DAILY, #30 TAB 02/12/16 Clopidogrel Bisulfate (Clopidogrel) 75 Mg Tablet, 75 MG PO DAILY, #30 TAB 02/12/16 Discontinued Reported Medications Hydromorphone Hcl* (Dilaudid* Inj) 1 Mg/Ml Soln, 0.5 MG IV Q4H Y for PAIN, AMP 02/12/16 Follow-up Plan transfer to a psychiatry facility MAUREEN ROBLES MD Apr 07, 2016 12:58
--- NOTE | 2016-04-07 16:46 | CONS ---
Date/Time of Note Date/Time of Note DATE: 04/07/16 TIME: 16:45 Assessment/Plan Assessment/Plan Chief Complaint/Hosp Course SUBJECTIVE: No acute changes overnight. The patient is sleeping, looks comfortable. No fevers. MICROBIOLOGY: Blood cultures have been negative. DIAGNOSTICS: Chest x-ray on admission revealed no active intrathoracic disease. A CT of the abdomen and pelvis showed no acute inflammatory process. ANTIMICROBIALS: The patient is on Levaquin, Bactrim s/p Elimite OBJECTIVE: GENERAL: This is an obese, well-developed, middle-aged man who is alert, in no distress. HEENT: Head atraumatic, normocephalic. Sclerae anicteric. Buccal mucosa pink. NECK: Supple, trachea midline. CHEST: Rise symmetrical. Breath sounds diminished to bases. HEART: S1, S2. ABDOMEN: Soft. Bowel tones present. EXTREMITIES: Without cyanosis. SKIN: With maculopapular rash, more on extremities. NEUROMUSCULAR: The patient is alert and ambulating. ASSESSMENT: 1. Skin rash ==> poss bug bites, poss folliculitis ==> s/p Elimite treatment. 2. Systemic inflammatory response syndrome present on admission, possible aspiration event. 3. History of chronic obstructive pulmonary disease. 4. Status post suicide attempt. 5. Morbid obesity. PLAN: The patient remains stable. Continue present care, abx, may need dermatology eval if rash persists DW staff Problems: Consultation Date/Type/Reason Admit Date/Time Apr 03, 2016 at 17:23 Type of Consultation: ID Exam/Review of Systems Vital Signs Vitals Vital Signs Date Time Temp Pulse Resp B/P Pulse Ox O2 Delivery O2 Flow Rate FiO2 04/07/16 07:45 98.3 62 18 135/76 94 04/05/16 00:16 21 04/03/16 22:02 Room Air 04/03/16 10:15 2.0 Intake and Output 04/06/16 04/06/16 04/07/16 15:00 23:00 07:00 Intake Total 1360 ml 600 ml 480 ml Output Total 800 ml Balance 1360 ml -200 ml 480 ml Results Result Diagram: 04/03/16 1740 04/03/16 1740 Medications Medications Current Medications Clopidogrel Bisulfate (plaVIX) 75 mg DAILY PO Last administered on 04/07/16t 08: 59; Admin Dose 75 MG; Start 04/04/16 at 09:00 Metoprolol Tartrate (Lopressor) 50 mg BID PO Last administered on 04/07/16 09: 00; Admin Dose 50 MG; Start 04/03/16 at 22:30 Atorvastatin Calcium (Lipitor) 20 mg DAILY@21 PO Last administered on 04/06/16 22:28; Admin Dose 20 MG; Start 04/03/16 at 22:30 Ondansetron HCl (Zofran Inj) 4 mg Q6H PRN IV NAUSEA AND/OR VOMITING; Start 04/03 at 22:30 Acetaminophen (Tylenol Tab) 650 mg Q6H PRN PO PAIN AND OR ELEVATED TEMP Last administered on 04/05/16 20:50; Admin Dose 650 MG; Start 04/04/16 at 01:00 Tramadol HCl (Ultram) 50 mg Q6H PRN PO PAIN; Start 04/04/16 at 01:30 Lorazepam (Ativan) 1 mg Q4H PRN IV ANXIETY Last administered on 04/04/16 02:32 ; Admin Dose 1 MG; Start 04/04/16 at 02:30 Diphenhydramine HCl (Benadryl) 25 mg Q6H PRN IV ITCHING Last administered on 09:03; Admin Dose 25 MG; Start 04/04/16 at 02:30 Enoxaparin Sodium (Lovenox) 40 mg DAILY SC Last administered on 04/06/16 09:06 ; Admin Dose 40 MG; Start 04/04/16 at 14:00 Lisinopril (Zestril) 40 mg DAILY PO Last administered on 04/07/16 08:59; Admin Dose 40 MG; Start 04/06/16 at 09:00 Salmeterol Xinafoate/ Fluticasone (Advair 250/50 Diskus) 1 inh BID INH Last administered on 04/07/16 09:00; Admin Dose 1 INH; Start 04/05/16 at 12:00 Tiotropium [place] (Spiriva) 1 inh DAILY INH Last administered on 04/07/16 09: 01; Admin Dose 1 INH; Start 04/05/16 at 12:00 Levofloxacin (Levaquin) 500 mg DAILY@06 PO Last administered on 04/07/16 06:13 ; Admin Dose 500 MG; Start 04/06/16 at 06:00; Stop 04/09/16 at 05:59 Neomycin/ Polymyxin/Bacitr/ Hydrocort (Cortisporin Topical Oint) 1 applic TID TOP Last administered on 04/06/16 13:55; Admin Dose 1 APPLIC; Start 04/05/16 at 21:00 Loratadine (Claritin) 10 mg DAILY PO Last administered on 04/07/16 08:59; Admin Dose 10 MG; Start 04/05/16 at 19:30 Sertraline HCl (Zoloft) 50 mg DAILY PO Last administered on 04/07/16 08:59; Admin Dose 50 MG; Start 04/06/16 at 11:30 Trimethoprim/ Sulfamethoxazole (Bactrim (Ds)) 1 tab BID PO ; Start 04/07/16 at 21 :00 Acetaminophen/ Hydrocodone Bitart ([place] (5/325)) 1 tab Q4H PRN PO Pain; Start 04/07/16 at 11:00 ELSIE THOMAS NP Apr 07, 2016 16:46
[2016-04-07 20:39] VITALS: BP 138/79; RESP 16
[2016-04-07] MEDS: ATORVASTATIN 20 MG TAB PO SCH (20:43)
[2016-04-07] MEDS: TRIMETHOPRIM/SULFAMETHOX (DS) TAB PO SCH (20:44)
[2016-04-07] MEDS: HYDROCODONE/APAP (5/325) TAB PO PRN (20:52)
[2016-04-07] MEDS ORDERED: morphine 2 MG INJ IV PRN (23:00)
[2016-04-07] MEDS ORDERED: KETOROLAC 15 MG INJ IV PRN (23:00)
[2016-04-07] MEDS: morphine 2 MG INJ IV PRN (23:02)
[2016-04-08] MEDS: DIPHENHYDRAMINE 50 MG INJ IV PRN ×3 (03:00→15:58)
[2016-04-08] MEDS: morphine 2 MG INJ IV PRN ×2 (03:05→09:31)
[2016-04-08] MEDS: PANTOPRAZOLE (EC) 40 MG TAB PO SCH (06:28)
[2016-04-08] MEDS: LEVOFLOXACIN 500 MG TAB PO SCH (06:28)
[2016-04-08] MEDS: NEOMYC/POLYMYX/BACIT/HC 15 GM OINT TOP SCH ×2 (09:00→13:00)
[2016-04-08] MEDS: ENOXAPARIN 40 MG/0.4 ML SYG SC SCH (09:00)
[2016-04-08] MEDS: LISINOPRIL 20 MG TAB PO SCH (09:05)
[2016-04-08] MEDS: TRIMETHOPRIM/SULFAMETHOX (DS) TAB PO SCH (09:05)
[2016-04-08] MEDS: LORATADINE 10 MG TAB PO SCH (09:05)
[2016-04-08] MEDS: SERTRALINE 50 MG TAB PO SCH (09:06)
[2016-04-08] MEDS: METOPROLOL 50 MG TAB PO SCH (09:06)
[2016-04-08] MEDS: CLOPIDOGREL 75 MG TAB PO SCH (09:06)
[2016-04-08] MEDS: SALMETEROL/FLUTICASONE 250/50 INHA INH SCH (09:08)
[2016-04-08 09:14] VITALS: BP 142/84; RESP 22
--- NOTE | 2016-04-08 13:22 | DS ---
Date/Time of Note Date/Time of Note DATE: 04/08/16 TIME: 13:21 Discharge Summary Admission/Discharge Info Admit Date/Time Apr 03, 2016 at 17:23 Discharge Date/Time Final Diagnosis 1. Acute bronchitis/Pneumonia, stable, on levaquin 2. Sepsis, resolved 3. COPD, exacerbation, improved 4. Suicide attempt, transfer to psychiatry facility 5. Rashes, improving 7. Morbid Obesity with BMI of ~ 40. Patient Condition: Stable Hospital Course Patient is a 50-year-old male who states that yesterday he took several pills of Plavix, metoprolol, and some aspirin in an attempt to kill himself. He said he throughout most of the pills and was not successful. After that he then tried to hang himself which was also not successful. He says the rope broke and he fell to the floor and knocked himself out. He is not sure how long he laid on the floor but when he woke up he woke up with bug bites all over himself. He then called the ambulance and they brought him here. His only complaints at this time are that he is having some side pain where he landed on the floor and that the bug bites or itching. Patient had cough with shortness of breath that started before the suicidal event. CXR and CT scan no pulmonary infiltrates. Patient is treated as acute bronchitis/pneumonia and COPD exacerbation, symptoms improved. He will continue 6 more days of oral levaquin on discharge. Patient developed rashes all over the body especially on waist, bvugbite versus folliculitis is considered. Patient got Elimite treatment. It is improving. For depression and suicidal ideation/attempt, Patient is transferred to a psych facility for further treatment. HEENT: Head atraumatic, normocephalic. Sclerae anicteric. Buccal mucosa pink. NECK: Supple, trachea midline. CHEST: Rise symmetrical. Breath sounds diminished to bases. HEART: S1, S2. ABDOMEN: Soft. Bowel tones present. EXTREMITIES: Without cyanosis. SKIN: With maculopapular rash, more on extremities. NEUROMUSCULAR: The patient is alert and ambulating. ASSESSMENT: 1. Skin rash ==> poss bug bites, poss folliculitis ==> s/p Elimite treatment. 2. Systemic inflammatory response syndrome present on admission, possible aspiration event. 3. History of chronic obstructive pulmonary disease. 4. Status post suicide attempt. 5. Morbid obesity. PLAN: The patient remains stable. Continue present care, abx, may need dermatology eval if rash persists [facility] staff Home Meds Active Scripts Levofloxacin* (Levaquin*) 500 Mg Tablet, 500 MG PO DAILY@06 for 6 Days, TAB Prov:MAUREEN ROBLES MD 04/07/16 Reported Medications Zolpidem Tartrate* (Ambien*) 5 Mg Tablet, 5 MG PO QHS Y for INSOMNIA, #30 TAB 02/12/16 Simvastatin* (Zocor*) 40 Mg Tablet, 40 MG PO QHS, #30 TAB 02/12/16 Pantoprazole Sodium (Protonix) 40 Mg Granpkt.dr, 40 MG PO AC BREAKFAST 02/12/16 Metoprolol Tartrate* (Lopressor*) 50 Mg Tab, 50 MG PO BID, #60 TAB 02/12/16 Lisinopril* (Prinivil*) 20 Mg Tablet, 20 MG PO DAILY, #30 TAB 02/12/16 Clopidogrel Bisulfate (Clopidogrel) 75 Mg Tablet, 75 MG PO DAILY, #30 TAB 02/12/16 Discontinued Reported Medications Hydromorphone Hcl* (Dilaudid* Inj) 1 Mg/Ml Soln, 0.5 MG IV Q4H Y for PAIN, AMP 02/12/16 Follow-up Plan transfer to psychiatry facility MAUREEN ROBLES MD Apr 08, 2016 13:22
--- NOTE | 2016-04-08 13:46 | CONS ---
Date/Time of Note Date/Time of Note DATE: 04/08/16 TIME: 13:45 Assessment/Plan Assessment/Plan Chief Complaint/Hosp Course SUBJECTIVE: No acute changes overnight. The patient is alert, looks comfortable. No fevers. MICROBIOLOGY: Blood cultures have been negative. DIAGNOSTICS: Chest x-ray on admission revealed no active intrathoracic disease. A CT of the abdomen and pelvis showed no acute inflammatory process. ANTIMICROBIALS: The patient is on Levaquin, Bactrim s/p Elimite OBJECTIVE: GENERAL: This is an obese, well-developed, middle-aged man who is alert, in no distress. HEENT: Head atraumatic, normocephalic. Sclerae anicteric. Buccal mucosa pink. NECK: Supple, trachea midline. CHEST: Rise symmetrical. Breath sounds diminished to bases. HEART: S1, S2. ABDOMEN: Soft. Bowel tones present. EXTREMITIES: Without cyanosis. SKIN: With maculopapular rash, more on extremities. NEUROMUSCULAR: The patient is alert and ambulating. ASSESSMENT: 1. Skin rash ==> poss bug bites, poss folliculitis ==> s/p Elimite treatment, improving. 2. Systemic inflammatory response syndrome present on admission, possible aspiration event. 3. History of chronic obstructive pulmonary disease. 4. Status post suicide attempt. 5. Morbid obesity. PLAN: The patient remains stable. Continue present care, abx, may need dermatology eval if rash persists [facility] staff Problems: Consultation Date/Type/Reason Admit Date/Time Apr 03, 2016 at 17:23 Type of Consultation: ID Exam/Review of Systems Vital Signs Vitals Vital Signs Date Time Temp Pulse Resp B/P Pulse Ox O2 Delivery O2 Flow Rate FiO2 04/08/16 09:14 98.4 59 22 142/84 93 04/05/16 00:16 21 Intake and Output 04/07/16 04/07/16 04/08/16 15:00 23:00 07:00 Intake Total 820 ml 780 ml Balance 820 ml 780 ml Medications Medications Current Medications Clopidogrel Bisulfate (plaVIX) 75 mg DAILY PO Last administered on 04/08/16 09: 06; Admin Dose 75 MG; Start 04/04/16 at 09:00 Metoprolol Tartrate (Lopressor) 50 mg BID PO Last administered on 04/08/16 09: 06; Admin Dose 50 MG; Start 04/03/16 at 22:30 Atorvastatin Calcium (Lipitor) 20 mg DAILY@21 PO Last administered on 04/07/16 20:43; Admin Dose 20 MG; Start 04/03/16 at 22:30 Ondansetron HCl (Zofran Inj) 4 mg Q6H PRN IV NAUSEA AND/OR VOMITING; Start 04/03 at 22:30 Acetaminophen (Tylenol Tab) 650 mg Q6H PRN PO PAIN AND OR ELEVATED TEMP Last administered on 04/05/16 20:50; Admin Dose 650 MG; Start 04/04/16 at 01:00 Tramadol HCl (Ultram) 50 mg Q6H PRN PO PAIN; Start 04/04/16 at 01:30 Lorazepam (Ativan) 1 mg Q4H PRN IV ANXIETY Last administered on 04/04/16 02:32 ; Admin Dose 1 MG; Start 04/04/16 at 02:30 Diphenhydramine HCl (Benadryl) 25 mg Q6H PRN IV ITCHING Last administered on 09:31; Admin Dose 25 MG; Start 04/04/16 at 02:30 Enoxaparin Sodium (Lovenox) 40 mg DAILY SC Last administered on 04/06/16 09:06 ; Admin Dose 40 MG; Start 04/04/16 at 14:00 Lisinopril (Zestril) 40 mg DAILY PO Last administered on 04/08/16 09:05; Admin Dose 40 MG; Start 04/06/16 at 09:00 Salmeterol Xinafoate/ Fluticasone (Advair 250/50 Diskus) 1 inh BID INH Last administered on 04/08/16 09:08; Admin Dose 1 INH; Start 04/05/16 at 12:00 Tiotropium [place] (Spiriva) 1 inh DAILY INH Last administered on 04/07/16 09: 01; Admin Dose 1 INH; Start 04/05/16 at 12:00 Levofloxacin (Levaquin) 500 mg DAILY@06 PO Last administered on 04/08/16 06:28 ; Admin Dose 500 MG; Start 04/06/16 at 06:00; Stop 04/09/16 at 05:59 Neomycin/ Polymyxin/Bacitr/ Hydrocort (Cortisporin Topical Oint) 1 applic TID TOP Last administered on 04/07/16 20:45; Admin Dose 1 APPLIC; Start 04/05/16 at 21:00 Loratadine (Claritin) 10 mg DAILY PO Last administered on 04/08/16 09:05; Admin Dose 10 MG; Start 04/05/16 at 19:30 Sertraline HCl (Zoloft) 50 mg DAILY PO Last administered on 04/08/16 09:06; Admin Dose 50 MG; Start 04/06/16 at 11:30 Trimethoprim/ Sulfamethoxazole (Bactrim (Ds)) 1 tab BID PO Last administered on 04/08/16 09:05; Admin Dose 1 TAB; Start 04/07/16 at 21:00 Acetaminophen/ Hydrocodone Bitart ([place] (5/325)) 1 tab Q4H PRN PO Pain Last administered on 04/07/16 20:52; Admin Dose 1 TAB; Start 04/07/16 at 11:00 Ketorolac Tromethamine (Toradol) 15 mg Q6H PRN IV PAIN; Start 04/07/16 at 23:00 ; Stop 04/10/16 at 22:59 ELSIE THOMAS NP Apr 08, 2016 13:45
[2016-04-08] MEDS: HYDROCODONE/APAP (5/325) TAB PO PRN (15:58)
[2016-04-08] MEDS: TIOTROPIUM 18 MCG CAPSULE INHA DEV INH SCH (16:02)
== END 2016-04-08 17:20 | disposition other institution (70) | DRG 917 ==
LOC: E/R 07:54 → MS2 17:23
PROVIDERS: ADMIT Internal Medicine; ATTEND Internal Medicine
DX: T45.522A Poisoning by antithrombotic drugs, intentional self-harm, initial encounter (principal); A41.9 Sepsis, unspecified organism; J69.0 Pneumonitis due to inhalation of food and vomit; F32.2 Major depressive disorder, single episode, severe without psychotic features; Z68.41 Body mass index [BMI] 40.0-44.9, adult; J44.0 Chronic obstructive pulmonary disease with (acute) lower respiratory infection; J44.1 Chronic obstructive pulmonary disease with (acute) exacerbation; T39.012A Poisoning by aspirin, intentional self-harm, initial encounter; X83.8XXA Intentional self-harm by other specified means, initial encounter; T46.5X2A Poisoning by other antihypertensive drugs, intentional self-harm, initial encounter; Y92.59 Other trade areas as the place of occurrence of the external cause; F17.200 Nicotine dependence, unspecified, uncomplicated; Z72.0 Tobacco use; W57.XXXA Bitten or stung by nonvenomous insect and other nonvenomous arthropods, initial encounter; E66.01 Morbid (severe) obesity due to excess calories; J20.9 Acute bronchitis, unspecified
CPT/HCPCS: 36600; 71010; 74176; 80053; 80306; 80307; 81001; 81003; 82803; 83605; 83690; 84484; 85025; 85610; 85730; 87040; 87086; 93005; 94664; 96361; 96365; 96375; 96376; J0692; J0696; J1170; J1200; J1650; J1720; J1885; J2060; J2270; J2405; J7030